=== PATIENT | female | born 1955 | race African-American/Black ===

== ENCOUNTER 2017-04-25 09:27 | Inpatient (IN) ==
[2017-04-25] MEDS ORDERED: ONDANSETRON 4 MG/2 ML VIAL IV STA (10:01)
[2017-04-25] MEDS ORDERED: LOPERAMIDE 2 MG CAPSULE PO STA (10:01)
[2017-04-25] MEDS ORDERED: METOCLOPRAMIDE 10 MG/2 ML VIAL IV STA (10:01)
[2017-04-25] MEDS ORDERED: SODIUM CHLORIDE 0.9% 1,000 ML IV STA (10:01)
[2017-04-25] MEDS ORDERED: DICYCLOMINE 20 MG/2 ML AMP IM ONE ×2 (10:01→10:26)
[2017-04-25] MEDS ORDERED: metroNIDAZOLE INJ 500 MG in PREMIX 1 EACH IV STA (10:01)
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
[2017-04-25 10:26] LABS: Basophils # 0.1 10*3/uL (0.0-0.2); Basophils % 0.7 % (0.0-0.8); Eosinophils # 0.1 10*3/uL (0.0-0.87); Eosinophils % 0.8 % (0.00-10.9); Hematocrit 28.1 VOL% (35.7-47.0); Hemoglobin 9.1 GM/DL (12.0-16.0); Immature Granulocytes % 32.3 %; Immature Granulocytes Absolute 3.61 #; Lymphocytes % 8.6 % (21.3-54.2); Mean Corpuscular HGB Conc 32.4 GM/DL (32-36); Mean Corpuscular Hemoglobin 31 PG (27-34); Mean Corpuscular Volume 94.6 FL (87-102); Mean Platelet Volume 8.9 FL (9.6-12.0); Monocytes # 0.1 10*3/uL (0.11-0.8); Neutrophils # 6.3 10*3/uL (1.4-7.4); Neutrophils % 56.6 % (38.7-73.9); Platelet Count 119 T/CUMM (130-400); Red Blood Count 2.97 MC/CUMM (3.8-5.5); Red Cell Distribution Width 15.3 % (9.3-17.3); White Blood Count 11.2 T/CUMM (4-12)
[2017-04-25] MEDS ORDERED: LOPERAMIDE 2 MG CAPSULE ONE (10:26)
[2017-04-25] MEDS ORDERED: ONDANSETRON 4 MG/2 ML VIAL ONE (10:26)
[2017-04-25] MEDS ORDERED: metroNIDAZOLE 500 MG/100 ML PREMIX IV ONE (10:26)
[2017-04-25] MEDS ORDERED: METOCLOPRAMIDE 10 MG/2 ML VIAL ONE (10:26)
[2017-04-25 11:04] LABS: Albumin 2.8 G/DL (3.4-5.0); Calcium 8.4 MG/DL (8.5-10.1); Potassium 3.9 MMOL/L (3.5-5.1); Total Protein 7.1 G/DL (6.4-8.3)
[2017-04-25 11:15] LABS: Lactic Acid 2.2 MMOL/L (0.4-2.0)
[2017-04-25 11:47] LABS: Apearance,Urine CLOUDY (Clear); Bacteria,Urine Few /HPF (Few); Bilirubin,Urine Negative (Negative); Blood, Urine Small mg/dL (Negative); Glucose,Urine (UA) Negative (Negative); Ketones,Urine Negative (Negative); Mucus,Urine Moderate /LPF (Occasional); Nitrite,Urine Negative (Negative); Protein,Urine 100 MG/DL; RBC,Urine 2 /HPF (0-4); Squamous Epithelial Cell,Urine Occasional /HPF (0-10); Urine Color Yellow (Yellow); Urine Specific Gravity 1.013 (1.001-1.035); Urine Urobilinogen < 2.0 EU/DL (0.2-1.0); WBC,Urine 9 /HPF (0-6)
--- NOTE | 2017-04-25 11:56 | XRay Report ---
XR abdomen 2V Indication: Abdominal pain Comparison: None available Findings: No free fluid or free air seen. A few prominent small bowel loops are present in the right side of the abdomen with air-fluid levels. Otherwise the bowel gas pattern appears within normal limits. No abnormal calcifications are present. No other abnormality is identified. Impression: Few prominent small bowel loops in the right central abdomen, could indicate ileus versus partial obstruction. PROCEDURE INTERPRETED AT [facility] DEPARTMENT OF RADIOLOGY Final Report Signed by: Dr. Brent Dooley
[2017-04-25 12:55] LABS: Macrocytosis 1+
[2017-04-25 12:56] LABS: Burr Cells Slight; Hypochromasia 1+
--- NOTE | 2017-04-25 15:03 | CT Report ---
CT abdomen pelvis Indication: Small bowel obstruction Comparison: 05 April 2017 Technique: Axial CT imaging of the abdomen and pelvis is performed with intravenous and oral contrast. Contrast dose is 100 cc of Omnipaque 350. Findings: Cardiac and lung bases are within normal limits CT abdomen: Moderate amount of abdominal ascites is present similar to previous. Liver has multiple hypodense lesions similar to previous CT. Gallbladder is distended with calculi. Pancreas and adrenal glands are normal in size and enhancement. No evidence of focal lesion is demonstrated in these solid organs. Kidneys are normal in size and enhancement. No evidence of hydronephrosis or nephrolithiasis is seen. Left lower abdominal and pelvic mass is present with similar appearance to previous study. Small bowel caliber is increased in the midabdomen without evidence of obstruction. The mass doesn't produce loop of small bowel in this area. Remaining bowel caliber is normal and no wall thickening or adjacent inflammatory change is seen. No evidence of free fluid or free air is present. CT pelvis: The pelvic bowel appears within normal limits. Bladder shows no evidence of abnormality. The uterus is enlarged with heterogeneous density present. Impression: Distended loops of nonobstructive small bowel bowel. The left lower abdominopelvic mass does approach portion of the small bowel in this area and may be contributing to vascular congestion in this area. This CT exam was performed using one or more the following dose reduction techniques: Automated exposure control, adjustment of the MA and/or KV according to patient size, or use of iterative reconstruction technique. PROCEDURE INTERPRETED AT [facility] DEPARTMENT OF RADIOLOGY Final Report Signed by: Dr. Brent Dooley
[2017-04-25] MEDS ORDERED: traMADol 50 MG TABLET PO PRN (17:42)
[2017-04-25] MEDS ORDERED: BENZTROPINE 2 MG/2 ML AMP IV PRN (17:42)
[2017-04-25] MEDS ORDERED: guaiFENesin 200 MG/10 ML UDCUP PO PRN (17:42)
[2017-04-25] MEDS ORDERED: ALPRAZolam 0.25 MG TABLET PO PRN (17:42)
[2017-04-25] MEDS ORDERED: LACTULOSE 20 GM/30 ML UDCUP PO PRN (17:42)
[2017-04-25] MEDS ORDERED: ACETAMINOPHEN 325 MG TABLET PO PRN (17:42)
[2017-04-25] MEDS ORDERED: MAGNESIUM HYDROXIDE SUSP 30 ML UDCUP PO PRN (17:42)
[2017-04-25] MEDS ORDERED: MYLANTA/LIDO VISC 2:1 300 ML BOTTLE SWISH/SPIT PRN (17:42)
[2017-04-25] MEDS ORDERED: MYLANTA/LIDO VISC 2:1 300 ML BOTTLE SWISH/SWAL PRN (17:42)
[2017-04-25] MEDS ORDERED: LOPERAMIDE 2 MG CAPSULE PO PRN (17:42)
[2017-04-25] MEDS ORDERED: diphenhydrAMINE CAP 25 MG CAPSULE PO PRN (17:42)
[2017-04-25] MEDS ORDERED: TEMAZEPAM 7.5 MG CAPSULE PO PRN (17:42)
[2017-04-25] MEDS ORDERED: ALUMINUM/MAGNES/SIMETH MAX STR 30 ML UDCUP PO PRN (17:42)
[2017-04-25] MEDS ORDERED: MAGNESIUM SULF INJ 3 GM in SODIUM CHLORIDE 0.9% 100 ML IV ONE (19:00)
[2017-04-25] MEDS: SULFAMETHOX/TRIMETHOPRIM 800-160 MG TABLET PO SCH (21:18)
[2017-04-25] MEDS: SODIUM CHLORIDE 0.45% 1,000 ML IV SCH (21:24)
[2017-04-25] MEDS ORDERED: INFLUENZA VIRUS VACCINE 0.5 ML SYRINGE IM ONE (23:37)
[2017-04-26] MEDS: LOPERAMIDE 2 MG CAPSULE PO PRN ×2 (02:22→09:55)
[2017-04-26 07:58] LABS: Magnesium 2.2 MG/DL (1.8-2.4); Uric Acid 6.6 MG/DL (2.6-6.0)
[2017-04-26] MEDS ORDERED: TUBERCULIN SKIN TEST 0.1 ML SYRINGE INTRADERM ONE (08:26)
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
[2017-04-26] MEDS: SULFAMETHOX/TRIMETHOPRIM 800-160 MG TABLET PO SCH ×2 (08:28→22:30)
[2017-04-26] MEDS: CHOLESTYRAMINE 4 GM PACK PO SCH ×2 (09:44→22:30)
[2017-04-26] MEDS: SODIUM CHLORIDE 0.45% 1,000 ML IV SCH ×2 (13:38→22:32)
[2017-04-26] MEDS: ZINC OXIDE PASTE 113 GM TUBE TOP SCH (22:30)
[2017-04-27] MEDS: SODIUM CHLORIDE 0.45% 1,000 ML IV SCH ×2 (02:53→17:46)
[2017-04-27] MEDS: LOPERAMIDE 2 MG CAPSULE PO PRN ×2 (03:26→14:16)
[2017-04-27] MEDS: ONDANSETRON 4 MG/2 ML VIAL IV PRN (03:27)
--- NOTE | 2017-04-27 08:22 | Oncology Progress Note ---
Assessment and Plan (1) Metastatic colon cancer in female Status: Acute Assessment and plan: We will give IV fluids today and anti-diarrhea medications. Otherwise continue with best supportive care. The family states they will take her back home at the time of discharge. Current Visit: Yes Oncology Subjective PN Interval history: Still with some degree of diarrhea. C. difficile is negative. Gram-negative rods in the urine are noted with oral Bactrim treatment currently prescribed. She has had nausea and vomiting 1 and will transition antibiotics to IV if this continues. She had some dilated loops of small intestine seen on admission CT scan. This morning she has bilateral bowel sounds which are present. Her abdomen is soft and nontender. She is pleasant and cooperative and appears in no distress. Her sister is at bedside. She is receiving IV fluids and we will encourage p.o. intake as tolerated. Her malignancy has certainly progressed based on CT scan from 04/05/2017 and alternative chemotherapy versus best supportive care will need to be decided upon Exam - Constitutional Vitals: Period Temp Pulse Resp BP Sys/Echeverria Pulse Ox Last 24 Hr 96.9 F-100.6 F 84-103 16-20 109-146/56-83 91-100 Results - Labs CBC & BMP: 04/25/17 10:01 04/25/17 09:56
[2017-04-27] MEDS: CHOLESTYRAMINE 4 GM PACK PO SCH ×2 (09:39→20:45)
[2017-04-27] MEDS: ZINC OXIDE PASTE 113 GM TUBE TOP SCH ×2 (09:39→20:49)
[2017-04-27] MEDS: SULFAMETHOX/TRIMETHOPRIM 800-160 MG TABLET PO SCH ×2 (09:39→20:46)
[2017-04-27] MEDS: MORPHINE 2 MG/1 ML SYRINGE IV PRN (17:04)
[2017-04-28] MEDS: SODIUM CHLORIDE 0.45% 1,000 ML IV SCH ×2 (07:01→13:24)
[2017-04-28 07:09] LABS: Albumin 2.1 G/DL (3.4-5.0); Bilirubin,Total 0.7 MG/DL (0.2-1.0); Calcium 7.5 MG/DL (8.5-10.1); Magnesium 1.8 MG/DL (1.8-2.4); Osmolality,Calculated 275.7 MOS/KG (273-304); Potassium 3.5 MMOL/L (3.5-5.1); Total Protein 5.5 G/DL (6.4-8.3)
[2017-04-28 07:59] LABS: Basophils % 0.8 % (0.0-0.8); Eosinophils % 2.4 % (0.00-10.9); Hematocrit 21.4 VOL% (35.7-47.0); Immature Granulocytes % 4.8 %; Immature Granulocytes Absolute 0.06 #; Lymphocytes # 0.6 10*3/uL (1.4-4.0); Lymphocytes % 51.6 % (21.3-54.2); Mean Corpuscular HGB Conc 33.2 GM/DL (32-36); Mean Corpuscular Hemoglobin 31 PG (27-34); Mean Corpuscular Volume 91.8 FL (87-102); Mean Platelet Volume 12.3 FL (9.6-12.0); Monocytes # 0.1 10*3/uL (0.11-0.8); Monocytes % 8.9 % (1.7-12.7); Neutrophils # 0.4 10*3/uL (1.4-7.4); Neutrophils % 31.5 % (38.7-73.9)
[2017-04-28 08:38] LABS: White Blood Count 1.2 T/CUMM (4-12)
[2017-04-28 08:39] LABS: Hemoglobin 7.1 GM/DL (12.0-16.0); Platelet Count 51 T/CUMM (130-400); Red Blood Count 2.33 MC/CUMM (3.8-5.5)
[2017-04-28] MEDS ORDERED: SODIUM CHLORIDE 0.9% 250 ML IV PRN (08:47)
[2017-04-28 08:51] LABS: Band Neutrophils 3 % (0-10); Eosinophils 1 % (0-10); Giant Platelets Few; Hypochromasia 1+; Lymphocytes 62 % (20-55); Ovalocytes Slight; Platelet Estimate Decreased; Segmented Neutrophils 21 % (50-85); Total Cells Counted 100
--- NOTE | 2017-04-28 08:51 | Oncology Progress Note ---
Assessment and Plan (1) Metastatic colon cancer in female Status: Acute Assessment and plan: We will give IV fluids today and anti-diarrhea medications. Otherwise continue with best supportive care. The family states they will take her back home at the time of discharge. Current Visit: Yes Oncology Subjective PN Interval history: Josiah Quinn is a very ill patient at this time with chemo related pancytopenia. I plan to transfuse 2 units of red blood cells today and place her on Neupogen. She also has febrile neutropenia with IV Cipro and IV Flagyl initiated today. We are treating an E. coli UTI though also think she has evidence of an ileus and oral antibiotics are now discontinued. We will change diet to full liquid. Her sister is at bedside. Bowel sounds are hypoactive. No vomiting but there is some suspicion of nausea as she is refusing p.o. intake. Continue with IV fluids with bowel management system now in place with brown liquid noted in the collection container. Urine output is positive though with some degree of concentration. Creatinine is appropriate at 1.6. She remains on IV fluids at 75 mL's an hour in addition to other IV medications. Her abdomen remained soft and no significant tenderness. There is no guarding or rebound. Exam - Constitutional Vitals: Period Temp Pulse Resp BP Sys/Echeverria Pulse Ox Last 24 Hr 97.9 F-101.1 F 101-111 18-20 111-147/55-78 97-100 Results - Labs CBC & BMP: 04/28/17 07:35 04/28/17 05:25
[2017-04-28 08:52] LABS: Atypical Lymphocytes Few; Microcytosis Slight
[2017-04-28] MEDS: FILGRASTIM-SNDZ 300 MCG/0.5 ML SYRINGE SUBCUT SCH (09:38)
[2017-04-28] MEDS: CHOLESTYRAMINE 4 GM PACK PO SCH ×3 (09:38→21:20)
[2017-04-28] MEDS: metroNIDAZOLE INJ 500 MG in PREMIX 1 EACH IV SCH ×2 (09:38→18:00)
[2017-04-28] MEDS: ZINC OXIDE PASTE 113 GM TUBE TOP SCH ×2 (09:39→21:19)
--- NOTE | 2017-04-28 10:10 | XRay Report ---
XR abdomen 1V Indication: Abdominal ileus Comparison: One April 2017 Findings: No free fluid or free air seen. Distended small bowel loops remain in the mid abdomen. The remaining bowel gas pattern appears within normal limits. No abnormal calcifications are present. No other abnormality is identified. Impression: Distended small bowel loops with similar appearance to previous study. PROCEDURE INTERPRETED AT [facility] DEPARTMENT OF RADIOLOGY Final Report Signed by: Dr. Brent Dooley
[2017-04-28] MEDS: CIPROFLOXACIN INJ 400 MG in PREMIX 1 EACH IV SCH ×2 (11:22→22:08)
[2017-04-28] MEDS: ONDANSETRON 4 MG/2 ML VIAL IV PRN (17:14)
[2017-04-29] MEDS: metroNIDAZOLE INJ 500 MG in PREMIX 1 EACH IV SCH ×3 (01:07→16:49)
[2017-04-29] MEDS: SODIUM CHLORIDE 0.45% 1,000 ML IV SCH ×3 (06:39→22:42)
[2017-04-29 07:17] LABS: Basophils % 0.7 % (0.0-0.8); Hematocrit 26.2 VOL% (35.7-47.0); Immature Granulocytes % 1.5 %; Immature Granulocytes Absolute 0.02 #; Lymphocytes # 0.7 10*3/uL (1.4-4.0); Lymphocytes % 51.1 % (21.3-54.2); Mean Corpuscular HGB Conc 33.6 GM/DL (32-36); Mean Corpuscular Hemoglobin 30 PG (27-34); Mean Corpuscular Volume 88.2 FL (87-102); Monocytes # 0.2 10*3/uL (0.11-0.8); Monocytes % 14.8 % (1.7-12.7); Neutrophils # 0.4 10*3/uL (1.4-7.4); Neutrophils % 28.9 % (38.7-73.9); White Blood Count 1.4 T/CUMM (4-12)
[2017-04-29 07:18] LABS: Red Blood Count 2.97 MC/CUMM (3.8-5.5)
[2017-04-29 07:19] LABS: Hemoglobin 8.8 GM/DL (12.0-16.0); Platelet Count 64 T/CUMM (130-400)
[2017-04-29 07:24] LABS: INR 1.5; PT Patient Result 16.1 SECS; Partial Thromboplastin Time 28.9 SECS (0-40)
[2017-04-29 07:46] LABS: Band Neutrophils 2 % (0-10); Burr Cells Slight; Eosinophils 3 % (0-10); Hypochromasia Slight; Lymphocytes 56 % (20-55); Microcytosis Slight; Ovalocytes Slight; Platelet Estimate Decreased; Segmented Neutrophils 23 % (50-85); Total Cells Counted 100
[2017-04-29 07:47] LABS: Atypical Lymphocytes Few
[2017-04-29 07:50] LABS: Albumin 2.2 G/DL (3.4-5.0); Bilirubin,Total 1.5 MG/DL (0.2-1.0); Calcium 7.7 MG/DL (8.5-10.1); Magnesium 1.8 MG/DL (1.8-2.4); Osmolality,Calculated 278.5 MOS/KG (273-304); Potassium 3.3 MMOL/L (3.5-5.1); Total Protein 5.4 G/DL (6.4-8.3)
[2017-04-29] MEDS ORDERED: SODIUM CHLORIDE 0.9% 1,000 ML IV ONE (08:29)
--- NOTE | 2017-04-29 08:39 | Oncology Progress Note ---
Assessment and Plan (1) Metastatic colon cancer in female Status: Acute Assessment and plan: We will give IV fluids today and anti-diarrhea medications. Otherwise continue with best supportive care. The family states they will take her back home at the time of discharge. Current Visit: Yes Oncology Subjective PN Interval history: The patient had emesis 2 yesterday. Bowel sounds remain hypoactive. Clinically she has at least a partial ileus or partial small bowel obstruction. There is actually still stool output. I have reviewed the CT report and the CT images and it appears that the left adnexal mass is impinging upon the small bowel. Plans for today include total bowel rest with n.p.o. status and TPN. She has made some improvements in her white blood cell count and platelet levels. Her hemoglobin is acceptable. She is currently afebrile. She is on IV antibiotics for an E. coli urinary tract infection. I will speak to her sister regarding how aggressive we are from this point regarding laparotomy in the setting of progressive metastatic disease. Exam - Constitutional Vitals: Period Temp Pulse Resp BP Sys/Echeverria Pulse Ox Last 24 Hr 97.9 F-99.6 F 106-114 18-20 112-159/58-80 96-99 Results - Labs CBC & BMP: 04/29/17 06:46 04/29/17 06:46
[2017-04-29] MEDS: CHOLESTYRAMINE 4 GM PACK PO SCH ×2 (09:03→22:42)
[2017-04-29] MEDS: FILGRASTIM-SNDZ 300 MCG/0.5 ML SYRINGE SUBCUT SCH (09:03)
[2017-04-29] MEDS: ZINC OXIDE PASTE 113 GM TUBE TOP SCH ×2 (09:04→22:42)
[2017-04-29] MEDS ORDERED: DEXTROSE 50% 25 GM/50 ML VIAL IV PRN (10:12)
[2017-04-29] MEDS ORDERED: GLUCAGON 1 MG VIAL IM PRN (10:12)
[2017-04-29 10:34] LABS: Prealbumin 5.1 MG/DL (20-40)
--- NOTE | 2017-04-29 10:47 | XRay Report ---
XR abdomen 1V Indication: Abdominal ileus Comparison: 28 April 2017 Findings: No free fluid or free air seen. Few prominent bowel loops present in the abdomen, slightly improved from previous study. Remaining bowel gas pattern appears within normal limits. No abnormal calcifications are present. No other abnormality is identified. Impression: Mild improvement of abdominal ileus. PROCEDURE INTERPRETED AT [facility] DEPARTMENT OF RADIOLOGY Final Report Signed by: Dr. Brent Dooley
[2017-04-29] MEDS: INSULIN REGULAR 100 UNIT/ML SUBCUT SCH ×2 (12:20→18:56)
[2017-04-29] MEDS: CIPROFLOXACIN INJ 400 MG in PREMIX 1 EACH IV SCH ×2 (12:23→22:41)
[2017-04-29] MEDS: FAT EMULSION 20% 250 ML IV SCH (16:49)
[2017-04-29] MEDS ORDERED: MULTIVITAMIN INJ 10 ML in AMINO ACIDS/DEXT/LYTES 5-15% 2,000 ML IV SCH (17:00)
[2017-04-29] MEDS: MORPHINE 2 MG/1 ML SYRINGE IV PRN (22:45)
[2017-04-30] MEDS: metroNIDAZOLE INJ 500 MG in PREMIX 1 EACH IV SCH ×3 (01:02→21:07)
[2017-04-30] MEDS: INSULIN REGULAR 100 UNIT/ML SUBCUT SCH ×4 (01:10→17:35)
[2017-04-30 04:46] LABS: Eosinophils % 2.4 % (0.00-10.9); Hematocrit 22.6 VOL% (35.7-47.0); Hemoglobin 7.5 GM/DL (12.0-16.0); Lymphocytes # 0.9 10*3/uL (1.4-4.0); Lymphocytes % 52.4 % (21.3-54.2); Mean Corpuscular HGB Conc 33.2 GM/DL (32-36); Mean Corpuscular Hemoglobin 30 PG (27-34); Mean Platelet Volume 10.7 FL (9.6-12.0); Monocytes # 0.3 10*3/uL (0.11-0.8); Monocytes % 16.5 % (1.7-12.7); Neutrophils # 0.5 10*3/uL (1.4-7.4); Neutrophils % 28.7 % (38.7-73.9); Red Blood Count 2.54 MC/CUMM (3.8-5.5); Red Cell Distribution Width 15.7 % (9.3-17.3); White Blood Count 1.7 T/CUMM (4-12)
[2017-04-30 04:48] LABS: Platelet Count 87 T/CUMM (130-400)
[2017-04-30 05:18] LABS: Calcium 7.6 MG/DL (8.5-10.1); Osmolality,Calculated 286.3 MOS/KG (273-304)
[2017-04-30 05:19] LABS: Potassium 3.1 MMOL/L (3.5-5.1)
[2017-04-30 05:23] LABS: Albumin 1.8 G/DL (3.4-5.0); Bilirubin,Total 0.7 MG/DL (0.2-1.0); Calcium 7.7 MG/DL (8.5-10.1); Magnesium 1.7 MG/DL (1.8-2.4); Osmolality,Calculated 286.3 MOS/KG (273-304); Potassium 3.2 MMOL/L (3.5-5.1); Total Protein 4.9 G/DL (6.4-8.3)
[2017-04-30 05:34] LABS: Atypical Lymphocytes Few; Band Neutrophils 1 % (0-10); Burr Cells Slight; Eosinophils 5 % (0-10); Giant Platelets Few; Hypochromasia Slight; Lymphocytes 52 % (20-55); Microcytosis Slight; Ovalocytes Slight; Platelet Estimate Decreased; Segmented Neutrophils 24 % (50-85); Total Cells Counted 100
[2017-04-30] MEDS ORDERED: SODIUM CHLORIDE 0.9% 250 ML IV PRN (09:20)
--- NOTE | 2017-04-30 09:25 | Oncology Progress Note ---
Assessment and Plan - Time spent with patient Time spent with patient: Greater than 30 minutes (1) Bowel obstruction Status: Acute Current Visit: Yes (2) Liver metastasis Status: Acute Current Visit: Yes (3) Pancytopenia due to chemotherapy Status: Acute Current Visit: Yes (4) Metastatic colon cancer in female Status: Acute Current Visit: Yes Oncology Subjective PN Interval history: Ms. Quinn 61-year-old black female with metastatic colon cancer currently on second line chemotherapy. She is usually followed by Dr. Flores. She is admitted now with abdominal distention and dilated small bowel on CT scan. She has a known large left pelvic mass. There is concern that this is causing bowel obstruction. We will ask surgery to see her in case this becomes a surgical issue. They can of course see her in the morning since this is not an urgent issue. At this point with her prognosis and her overall physical function I do not think we need to be very aggressive. I had a lengthy discussion today with the patient and her sister about her situation. I told him to be thinking about her CODE STATUS given her underlying prognosis. The patient is not mentally capable of understanding such conversations and the sister was not ready to make any decision at this time. She is not vomiting so I do not see a need for an NG tube at this time. She is on TPN that was initiated yesterday. She is pancytopenic from her recent chemotherapy. She is on Neupogen. I will give her 2 units of blood today. Exam - Constitutional Vitals: Period Temp Pulse Resp BP Sys/Echeverria Pulse Ox Last 24 Hr 98.2 F-99.8 F 91-111 18-20 112-123/58-70 96-100 General appearance: normal weight, no acute distress - Head Head Exam: Present: normocephalic, atraumatic - Eye Eye Exam: Present: EOMI Pupils: Present: PERRL - ENT ENT exam: Present: normal exam, normal oropharynx - Neck Neck exam: Absent: lymphadenopathy, thyromegaly - Respiratory Respiratory exam: Present: CTAB. Absent: wheezes - GI/Abdominal GI/Abdominal exam: Present: distended, hypoactive bowel sounds, soft. Absent: ascites, firm, mass - Neurological Exam Neurological exam: Present: alert, oriented X3 - Skin Skin exam: Present: warm, dry Results - Labs CBC & BMP: 04/30/17 03:22 04/30/17 03:22 Lab Results: I have reviewed the past 24 hour labs - Diagnostic Findings Procedure: Abdominal x-ray: image reviewed by me
[2017-04-30] MEDS: SODIUM CHLORIDE 0.45% 1,000 ML IV SCH (09:32)
[2017-04-30] MEDS: CHOLESTYRAMINE 4 GM PACK PO SCH ×2 (09:33→20:58)
[2017-04-30] MEDS: ZINC OXIDE PASTE 113 GM TUBE TOP SCH ×2 (09:33→21:09)
[2017-04-30] MEDS: FILGRASTIM-SNDZ 300 MCG/0.5 ML SYRINGE SUBCUT SCH (09:33)
--- NOTE | 2017-04-30 09:55 | XRay Report ---
History: Ileus Date: 04/30/2017 Study: KUB Comparison exam: 04/29/2017 There are some occasional air filled loops of large and small bowel over the abdomen compatible with ileus, the same or slightly improved. There is pooling of air filled bowel over the central abdomen compatible with underlying ascites. Osseous structures are unchanged. Impression: Stable or slightly improved ileus. Suspected underlying ascites as before PROCEDURE INTERPRETED AT [facility] DEPARTMENT OF RADIOLOGY Final Report Signed by: Dr. Angela Robledo
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
[2017-04-30] MEDS: CIPROFLOXACIN INJ 400 MG in PREMIX 1 EACH IV SCH (12:52)
[2017-04-30] MEDS: FAT EMULSION 20% 250 ML IV SCH (14:22)
[2017-04-30] MEDS: TRACE ELEMENTS (5) 1 ML, MULTIVITAMIN INJ 10 ML, POTASSIUM CHLORIDE INJ 40 MEQ in AMINO... IV SCH (16:52)
[2017-04-30] MEDS ORDERED: MULTIVITAMIN INJ 10 ML in AMINO ACIDS/DEXT/LYTES 5-15% 2,000 ML IV SCH (17:00)
[2017-04-30] MEDS ORDERED: DEXTROSE 10% 1,000 ML IV PRN (17:00)
[2017-05-01] MEDS: INSULIN REGULAR 100 UNIT/ML SUBCUT SCH ×4 (00:34→18:46)
[2017-05-01] MEDS: CIPROFLOXACIN INJ 400 MG in PREMIX 1 EACH IV SCH ×2 (01:21→14:10)
[2017-05-01] MEDS: SODIUM CHLORIDE 0.45% 1,000 ML IV SCH ×3 (01:30→23:01)
[2017-05-01] MEDS: metroNIDAZOLE INJ 500 MG in PREMIX 1 EACH IV SCH ×3 (03:28→17:10)
[2017-05-01 04:31] LABS: Basophils % 0.3 % (0.0-0.8); Eosinophils # 0.1 10*3/uL (0.0-0.87); Eosinophils % 2.1 % (0.00-10.9); Hematocrit 29.2 VOL% (35.7-47.0); Hemoglobin 9.8 GM/DL (12.0-16.0); Immature Granulocytes % 0.7 %; Immature Granulocytes Absolute 0.02 #; Lymphocytes # 0.8 10*3/uL (1.4-4.0); Lymphocytes % 27.9 % (21.3-54.2); Mean Corpuscular HGB Conc 33.6 GM/DL (32-36); Mean Corpuscular Hemoglobin 30 PG (27-34); Mean Corpuscular Volume 88.5 FL (87-102); Mean Platelet Volume 10.6 FL (9.6-12.0); Monocytes # 0.5 10*3/uL (0.11-0.8); Monocytes % 17.9 % (1.7-12.7); Neutrophils # 1.5 10*3/uL (1.4-7.4); Neutrophils % 51.1 % (38.7-73.9); Platelet Count 96 T/CUMM (130-400); White Blood Count 2.9 T/CUMM (4-12)
[2017-05-01 05:03] LABS: Albumin 1.9 G/DL (3.4-5.0); Magnesium 1.8 MG/DL (1.8-2.4); Osmolality,Calculated 291.1 MOS/KG (273-304); Potassium 3.5 MMOL/L (3.5-5.1); Total Protein 5.3 G/DL (6.4-8.3)
[2017-05-01 05:57] LABS: Anisocytosis Slight; Band Neutrophils 12 % (0-10); Eosinophils 2 % (0-10); Lymphocytes 26 % (20-55); Metamyelocytes 3 %; Microcytosis Slight; Myelocytes 2 %; Platelet Estimate Decreased; Segmented Neutrophils 39 % (50-85); Total Cells Counted 100
[2017-05-01] MEDS: CHOLESTYRAMINE 4 GM PACK PO SCH ×2 (08:32→21:30)
[2017-05-01] MEDS: FILGRASTIM-SNDZ 300 MCG/0.5 ML SYRINGE SUBCUT SCH (09:11)
[2017-05-01] MEDS: ZINC OXIDE PASTE 113 GM TUBE TOP SCH ×2 (09:12→21:32)
[2017-05-01] MEDS ORDERED: SODIUM CHLORIDE 0.9% 1,000 ML IV ONE (10:55)
--- NOTE | 2017-05-01 10:57 | Oncology Progress Note ---
Assessment and Plan (1) Bowel obstruction Status: Acute Current Visit: Yes (2) Liver metastasis Status: Acute Current Visit: Yes (3) Pancytopenia due to chemotherapy Status: Acute Current Visit: Yes (4) Metastatic colon cancer in female Status: Acute Current Visit: Yes Oncology Subjective PN Interval history: Ms. Quinn doing well today. Her abdomen still distended with very few bowel sounds. She is only having some liquid stool. Surgery is seen her for us we appreciate their assistance. We are managing her conservatively. I will give her a liter bolus today as she appears somewhat dehydrated. I told her it is likely okay for her start sipping on water throughout the day. Her prognosis remains poor. We are hoping to manage her with conservative measures only. Exam - Constitutional Vitals: Period Temp Pulse Resp BP Sys/Echeverria Pulse Ox Last 24 Hr 97.0 F-99.0 F 90-99 18-97 93-137/54-76 94-100 General appearance: normal weight, no acute distress - Head Head Exam: Present: normocephalic, atraumatic - Eye Eye Exam: Present: EOMI Pupils: Present: PERRL - ENT ENT exam: Present: normal exam, normal oropharynx - Neck Neck exam: Absent: lymphadenopathy - Respiratory Respiratory exam: Present: CTAB. Absent: chest wall tenderness, decreased breath sounds - Cardiovascular Cardiovascular exam: Present: RRR - GI/Abdominal GI/Abdominal exam: Present: distended, hypoactive bowel sounds, soft. Absent: firm, mass - Neurological Exam Neurological exam: Present: alert, oriented X3 - Psychiatric Psychiatric exam: Present: normal affect, normal mood Results - Labs CBC & BMP: 05/01/17 03:45 05/01/17 03:46 Lab Results: I have reviewed the past 24 hour labs
--- NOTE | 2017-05-01 11:02 | Event Note ---
No changes compared to yesterday. The abdomen is unchanged nontender but tympanic and distended. There is been no bowel function since yesterday but also no nausea or vomiting. We will continue to monitor for now.
[2017-05-01] MEDS: FAT EMULSION 20% 250 ML IV SCH (14:50)
[2017-05-01] MEDS ORDERED: FUROSEMIDE 20 MG/2 ML VIAL IV ONE (18:19)
[2017-05-01] MEDS: TRACE ELEMENTS (5) 1 ML, MULTIVITAMIN INJ 10 ML, POTASSIUM CHLORIDE INJ 40 MEQ in AMINO... IV SCH (18:25)
[2017-05-02] MEDS: INSULIN REGULAR 100 UNIT/ML SUBCUT SCH ×4 (00:57→18:01)
[2017-05-02] MEDS: CIPROFLOXACIN INJ 400 MG in PREMIX 1 EACH IV SCH ×2 (00:58→13:14)
[2017-05-02] MEDS: metroNIDAZOLE INJ 500 MG in PREMIX 1 EACH IV SCH (02:33)
[2017-05-02 05:26] LABS: Basophils # 0.1 10*3/uL (0.0-0.2); Basophils % 0.6 % (0.0-0.8); Eosinophils # 0.1 10*3/uL (0.0-0.87); Eosinophils % 0.8 % (0.00-10.9); Hematocrit 28.6 VOL% (35.7-47.0); Hemoglobin 9.8 GM/DL (12.0-16.0); Immature Granulocytes % 13.9 %; Immature Granulocytes Absolute 1.81 #; Lymphocytes # 1.5 10*3/uL (1.4-4.0); Lymphocytes % 11.1 % (21.3-54.2); Mean Corpuscular HGB Conc 34.3 GM/DL (32-36); Mean Corpuscular Hemoglobin 30 PG (27-34); Mean Corpuscular Volume 87.7 FL (87-102); Monocytes # 1.9 10*3/uL (0.11-0.8); Monocytes % 14.5 % (1.7-12.7); NRBC # 0.04 10*3/uL; Neutrophils # 7.7 10*3/uL (1.4-7.4); Neutrophils % 59.1 % (38.7-73.9); Platelet Count 110 T/CUMM (130-400); Red Blood Count 3.26 MC/CUMM (3.8-5.5); Red Cell Distribution Width 15.7 % (9.3-17.3)
[2017-05-02 05:56] LABS: Albumin 2.1 G/DL (3.4-5.0); Bilirubin,Total 0.9 MG/DL (0.2-1.0); Magnesium 1.5 MG/DL (1.8-2.4); Osmolality,Calculated 289.3 MOS/KG (273-304); Potassium 3.5 MMOL/L (3.5-5.1); Total Protein 5.4 G/DL (6.4-8.3)
[2017-05-02 06:23] LABS: Band Neutrophils 3 % (0-10); Eosinophils 1 % (0-10); Lymphocytes 12 % (20-55); Metamyelocytes 3 %; Myelocytes 1 %; Segmented Neutrophils 66 % (50-85); Total Cells Counted 100
[2017-05-02 06:24] LABS: Hypochromasia 1+
[2017-05-02 06:25] LABS: Burr Cells Slight; Microcytosis Slight
[2017-05-02 06:26] LABS: Platelet Estimate Decreased
--- NOTE | 2017-05-02 08:53 | Oncology Progress Note ---
Assessment and Plan - Time spent with patient Time spent with patient: Greater than 30 minutes (1) Bowel obstruction Status: Acute Current Visit: Yes (2) Liver metastasis Status: Acute Current Visit: Yes (3) Pancytopenia due to chemotherapy Status: Acute Current Visit: Yes (4) Metastatic colon cancer in female Status: Acute Current Visit: Yes Oncology Subjective PN Interval history: Ms. Quinn seems to be doing well today. Her neutrophil count is now greater than 7. Will discontinue Neupogen. We will also discontinue her Flagyl since her C. difficile toxin was negative. Given that her abdomen is distended with decreased bowel sounds I will hold Questran as well. She is still having some liquid stool so if this worsens we can consider adding back the Questran if needed. I will leave her on IV Cipro for now given her recent urine culture showing E. coli. Her overall prognosis remains very poor. I am unsure how well her family understands her overall cancer situation. Exam - Constitutional Vitals: Period Temp Pulse Resp BP Sys/Echeverria Pulse Ox Last 24 Hr 98.1 F-99.7 F 96-115 18-26 125-162/59-82 96-98 General appearance: normal weight, no acute distress - Head Head Exam: Present: normocephalic, atraumatic - Eye Eye Exam: Present: EOMI. Absent: scleral icterus Pupils: Present: PERRL - Respiratory Respiratory exam: Present: CTAB. Absent: wheezes - Cardiovascular Cardiovascular exam: Present: RRR. Absent: systolic murmur - GI/Abdominal GI/Abdominal exam: Present: soft. Absent: ascites, distended, mass - Neurological Exam Neurological exam: Present: alert, oriented X3, CN II-XII intact - Psychiatric Psychiatric exam: Present: normal affect, normal mood - Skin Skin exam: Present: warm, dry Results - Labs CBC & BMP: 05/02/17 04:41 05/02/17 04:41 Lab Results: I have reviewed the past 24 hour labs
--- NOTE | 2017-05-02 09:47 | XRay Report ---
EXAM: XR abdomen 2V CLINICAL INDICATION: Abdominal Pain COMPARISON: None Findings: No gastric distention. A few prominent air-filled loops of large and small bowel without dilatation or significant air-fluid levels. Visceral shadows are normal. No abnormal focal soft tissue masses or calcific densities identified in the abdomen or pelvis. IMPRESSION: No significant change in the bowel gas pattern, likely representing adynamic process PROCEDURE INTERPRETED AT [facility] DEPARTMENT OF RADIOLOGY Final Report Signed by: Narendra Vargas MD
[2017-05-02] MEDS: ZINC OXIDE PASTE 113 GM TUBE TOP SCH ×2 (11:34→21:36)
--- NOTE | 2017-05-02 12:45 | Event Note ---
No changes overnight. No bowel movements yet. Patient's abdomen exam is the same. She has no pain. She is still distended. She is being placed on a liquid diet today and we will see how she tolerates this. He does not have a significantly distended gastric bubble so hopefully some intake orally will stimulate her bowels.
[2017-05-02] MEDS: FAT EMULSION 20% 250 ML IV SCH (14:11)
[2017-05-02] MEDS: SODIUM CHLORIDE 0.45% 1,000 ML IV SCH (14:59)
[2017-05-02] MEDS: TRACE ELEMENTS (5) 1 ML, MULTIVITAMIN INJ 10 ML, POTASSIUM CHLORIDE INJ 40 MEQ in AMINO... IV SCH (17:43)
[2017-05-03] MEDS: INSULIN REGULAR 100 UNIT/ML SUBCUT SCH ×4 (00:17→18:34)
[2017-05-03] MEDS: CIPROFLOXACIN INJ 400 MG in PREMIX 1 EACH IV SCH ×2 (00:59→13:02)
[2017-05-03] MEDS: SODIUM CHLORIDE 0.45% 1,000 ML IV SCH ×2 (05:31→07:42)
[2017-05-03 06:16] LABS: Basophils # 0.1 10*3/uL (0.0-0.2); Basophils % 0.5 % (0.0-0.8); Eosinophils # 0.3 10*3/uL (0.0-0.87); Hematocrit 28.7 VOL% (35.7-47.0); Hemoglobin 9.9 GM/DL (12.0-16.0); Immature Granulocytes % 13.2 %; Immature Granulocytes Absolute 3.72 #; Lymphocytes # 3.1 10*3/uL (1.4-4.0); Mean Corpuscular HGB Conc 34.5 GM/DL (32-36); Mean Corpuscular Hemoglobin 30 PG (27-34); Mean Platelet Volume 11.4 FL (9.6-12.0); Monocytes # 4.7 10*3/uL (0.11-0.8); Monocytes % 16.6 % (1.7-12.7); NRBC # 0.05 10*3/uL; Neutrophils # 16.3 10*3/uL (1.4-7.4); Neutrophils % 57.7 % (38.7-73.9); Platelet Count 163 T/CUMM (130-400); Red Cell Distribution Width 16.1 % (9.3-17.3); White Blood Count 28.2 T/CUMM (4-12)
[2017-05-03 06:47] LABS: Calcium 8.1 MG/DL (8.5-10.1); Magnesium 1.4 MG/DL (1.8-2.4); Osmolality,Calculated 284.3 MOS/KG (273-304); Phosphorous 2.5 MG/DL (2.5-4.9); Potassium 3.3 MMOL/L (3.5-5.1)
[2017-05-03 06:50] LABS: Albumin 2.2 G/DL (3.4-5.0); Bilirubin,Total 1.4 MG/DL (0.2-1.0); Calcium 8.1 MG/DL (8.5-10.1); Osmolality,Calculated 284.3 MOS/KG (273-304); Potassium 3.3 MMOL/L (3.5-5.1); Total Protein 5.4 G/DL (6.4-8.3)
[2017-05-03 07:03] LABS: Band Neutrophils 6 % (0-10); Eosinophils 2 % (0-10); Lymphocytes 4 % (20-55); Nucleated Red Blood Cells 2 (0-5); Segmented Neutrophils 78 % (50-85); Total Cells Counted 100
[2017-05-03 07:04] LABS: Burr Cells Slight; Giant Platelets Few; Hypochromasia Slight; Microcytosis Slight; Platelet Estimate Normal
[2017-05-03] MEDS ORDERED: MAGNESIUM SULF RIDER 2 GM in PREMIX 1 EACH IV ONE (08:06)
--- NOTE | 2017-05-03 08:08 | Oncology Progress Note ---
Assessment and Plan (1) Bowel obstruction Status: Acute Current Visit: Yes (2) Liver metastasis Status: Acute Current Visit: Yes (3) Pancytopenia due to chemotherapy Status: Acute Current Visit: Yes (4) Metastatic colon cancer in female Status: Acute Current Visit: Yes Oncology Subjective PN Interval history: Ms. Quinn is continuing to improve each day. Her diarrhea has improved. She tolerated clear liquid diet with no problems yesterday. We will advance this to full liquid diet today and cut her TPN rate in half. I will also decrease the rate of her IV fluids. Her abdomen is still distended but there are some bowel sounds. Her white count has fully recovered from her recent neutropenia. Exam - Constitutional Vitals: Period Temp Pulse Resp BP Sys/Echeverria Pulse Ox Last 24 Hr 97.8 F-99.3 F 104-114 20-28 123-160/64-83 95-97 General appearance: normal weight, no acute distress - Head Head Exam: Present: normocephalic, atraumatic - Eye Eye Exam: Present: EOMI Pupils: Present: PERRL - ENT ENT exam: Present: normal exam, normal oropharynx - Neck Neck exam: Absent: lymphadenopathy, thyromegaly - Respiratory Respiratory exam: Present: CTAB. Absent: wheezes - Cardiovascular Cardiovascular exam: Present: RRR. Absent: JVD, systolic murmur - GI/Abdominal GI/Abdominal exam: Present: distended, hypoactive bowel sounds. Absent: ascites , guarding - Neurological Exam Neurological exam: Present: alert, oriented X3 - Skin Skin exam: Present: warm, dry Results - Labs CBC & BMP: 05/03/17 05:49 05/03/17 05:49 Lab Results: I have reviewed the past 24 hour labs
[2017-05-03] MEDS: ZINC OXIDE PASTE 113 GM TUBE TOP SCH ×2 (08:41→20:19)
--- NOTE | 2017-05-03 08:42 | Event Note ---
The patient had no events overnight. She is tolerating a liquid diet with no nausea or vomiting. She is having bowel movements and feels well overall. She denies any abdominal pain. On exam, her abdomen is completely benign and she does have bowel sounds present. I do not recommend any surgical intervention at this time.
[2017-05-03] MEDS: TRACE ELEMENTS (5) 1 ML, MULTIVITAMIN INJ 10 ML, POTASSIUM CHLORIDE INJ 40 MEQ in AMINO... IV SCH (17:19)
[2017-05-03] MEDS: FAT EMULSION 20% 250 ML IV SCH (17:20)
[2017-05-03] MEDS: MORPHINE 2 MG/1 ML SYRINGE IV PRN (21:41)
[2017-05-04] MEDS: INSULIN REGULAR 100 UNIT/ML SUBCUT SCH ×4 (01:17→19:43)
[2017-05-04] MEDS: CIPROFLOXACIN INJ 400 MG in PREMIX 1 EACH IV SCH ×2 (01:46→18:00)
[2017-05-04 06:58] LABS: Basophils # 0.1 10*3/uL (0.0-0.2); Basophils % 0.4 % (0.0-0.8); Eosinophils # 0.3 10*3/uL (0.0-0.87); Eosinophils % 1.2 % (0.00-10.9); Hematocrit 27.8 VOL% (35.7-47.0); Hemoglobin 9.3 GM/DL (12.0-16.0); Immature Granulocytes % 8.6 %; Immature Granulocytes Absolute 2.34 #; Lymphocytes # 2.7 10*3/uL (1.4-4.0); Lymphocytes % 10.1 % (21.3-54.2); Mean Corpuscular HGB Conc 33.5 GM/DL (32-36); Mean Corpuscular Hemoglobin 30 PG (27-34); Mean Corpuscular Volume 88.8 FL (87-102); Mean Platelet Volume 10.6 FL (9.6-12.0); Monocytes # 3.9 10*3/uL (0.11-0.8); Monocytes % 14.2 % (1.7-12.7); NRBC # 0.03 10*3/uL; Neutrophils # 17.8 10*3/uL (1.4-7.4); Neutrophils % 65.5 % (38.7-73.9); Platelet Count 157 T/CUMM (130-400); Red Blood Count 3.13 MC/CUMM (3.8-5.5); Red Cell Distribution Width 16.7 % (9.3-17.3); White Blood Count 27.2 T/CUMM (4-12)
[2017-05-04 07:30] LABS: Calcium 7.5 MG/DL (8.5-10.1); Osmolality,Calculated 286.3 MOS/KG (273-304); Potassium 3.4 MMOL/L (3.5-5.1)
[2017-05-04 07:39] LABS: Band Neutrophils 38 % (0-10); Eosinophils 1 % (0-10); Lymphocytes 12 % (20-55); Metamyelocytes 1 %; Segmented Neutrophils 40 % (50-85); Total Cells Counted 100
[2017-05-04 07:40] LABS: Anisocytosis 1+; Poikilocytosis 2+
--- NOTE | 2017-05-04 08:11 | Oncology Progress Note ---
Assessment and Plan (1) Metastatic colon cancer in female Status: Acute Assessment and plan: We will give IV fluids today and anti-diarrhea medications. Otherwise continue with best supportive care. The family states they will take her back home at the time of discharge. Current Visit: Yes Oncology Subjective PN Interval history: Patient is improved compared to several days earlier. She has fair tolerance of diet at this time. We are weaning TPN and IV fluids. Will consult physical therapy and occupational therapy and consider for swing bed placement. The family has declined previous offers of fdc placement. Her abdomen remains obese but nontender. Bowel sounds are present but somewhat hypoactive. There has been no recent nausea or vomiting reported. She is still having some watery bowel movements sporadically. White blood count is noted felt secondary to granulocyte colony-stimulating factor. Platelets have improved and hemoglobin appears stable. Should be able to discharge within a few days time pending continued acceptable p.o. intake Exam - Constitutional Vitals: Period Temp Pulse Resp BP Sys/Echeverria Pulse Ox Last 24 Hr 96.9 F-98.6 F 100-106 18-22 114-136/59-77 96-99 Results - Labs CBC & BMP: 05/04/17 05:00 05/04/17 04:59
[2017-05-04] MEDS: ZINC OXIDE PASTE 113 GM TUBE TOP SCH ×2 (08:54→20:00)
--- NOTE | 2017-05-04 09:28 | Event Note ---
No changes. Patient continues to have bowel function. Advance diet as tolerated. No surgical intervention planned at this time. Please call back with any further questions per
[2017-05-04] MEDS: SODIUM CHLORIDE 0.45% 1,000 ML IV SCH ×3 (12:54→12:56)
[2017-05-04] MEDS: FAT EMULSION 20% 250 ML IV SCH (17:00)
[2017-05-04] MEDS: TRACE ELEMENTS (5) 1 ML, MULTIVITAMIN INJ 10 ML, POTASSIUM CHLORIDE INJ 40 MEQ in AMINO... IV SCH (18:46)
[2017-05-05] MEDS: INSULIN REGULAR 100 UNIT/ML SUBCUT SCH ×4 (00:52→18:18)
[2017-05-05] MEDS: CIPROFLOXACIN INJ 400 MG in PREMIX 1 EACH IV SCH ×2 (01:21→14:20)
[2017-05-05] MEDS: SODIUM CHLORIDE 0.45% 1,000 ML IV SCH (06:44)
[2017-05-05] MEDS ORDERED: MAGNESIUM SULF INJ 3 GM in SODIUM CHLORIDE 0.9% 100 ML IV ONE (08:35)
--- NOTE | 2017-05-05 08:37 | Oncology Progress Note ---
Assessment and Plan (1) Metastatic colon cancer in female Status: Acute Assessment and plan: We will give IV fluids today and anti-diarrhea medications. Otherwise continue with best supportive care. The family states they will take her back home at the time of discharge. Current Visit: Yes Oncology Subjective PN Interval history: Tolerating full liquid diet. Plans to discontinue TPN and IV fluids today. Her sister seems to be okay with swing bed placement with initial assessment undertaken yesterday. She has improved bowel sounds this morning with no tenderness guarding or rebound. Her mood and affect are pleasant and cooperative. Because of chronic urinary incontinence and perineal irritation, we will continue [place] catheter for the short-term Exam - Constitutional Vitals: Period Temp Pulse Resp BP Sys/Echeverria Pulse Ox Last 24 Hr 97.8 F-99.0 F 101-107 18-20 121-175/67-100 97-100 Results - Labs CBC & BMP: 05/04/17 05:00 05/04/17 04:59
[2017-05-05] MEDS: ZINC OXIDE PASTE 113 GM TUBE TOP SCH ×2 (10:53→22:27)
[2017-05-05] MEDS: FAT EMULSION 20% 250 ML IV SCH (14:35)
[2017-05-06] MEDS: INSULIN REGULAR 100 UNIT/ML SUBCUT SCH ×2 (01:45→05:57)
[2017-05-06] MEDS: CIPROFLOXACIN INJ 400 MG in PREMIX 1 EACH IV SCH (01:53)
[2017-05-06 05:16] LABS: Basophils # 0.1 10*3/uL (0.0-0.2); Basophils % 0.3 % (0.0-0.8); Eosinophils # 0.4 10*3/uL (0.0-0.87); Eosinophils % 1.9 % (0.00-10.9); Hemoglobin 9.2 GM/DL (12.0-16.0); Immature Granulocytes % 4.4 %; Immature Granulocytes Absolute 0.95 #; Lymphocytes % 9.3 % (21.3-54.2); Mean Corpuscular HGB Conc 32.9 GM/DL (32-36); Mean Corpuscular Hemoglobin 30 PG (27-34); Mean Corpuscular Volume 90.6 FL (87-102); Mean Platelet Volume 9.9 FL (9.6-12.0); Monocytes # 2.7 10*3/uL (0.11-0.8); Monocytes % 12.6 % (1.7-12.7); NRBC # 0.02 10*3/uL; Neutrophils # 15.4 10*3/uL (1.4-7.4); Neutrophils % 71.5 % (38.7-73.9); Platelet Count 159 T/CUMM (130-400); Red Blood Count 3.09 MC/CUMM (3.8-5.5); Red Cell Distribution Width 17.4 % (9.3-17.3); White Blood Count 21.6 T/CUMM (4-12)
[2017-05-06 05:38] LABS: Band Neutrophils 2 % (0-10); Eosinophils 1 % (0-10); Hypochromasia 1+; Lymphocytes 12 % (20-55); Metamyelocytes 2 %; Nucleated Red Blood Cells 1 (0-5); Segmented Neutrophils 72 % (50-85); Total Cells Counted 100
[2017-05-06 05:39] LABS: Microcytosis 1+; Platelet Estimate Adequate
[2017-05-06 05:56] LABS: Calcium 7.7 MG/DL (8.5-10.1); Magnesium 1.7 MG/DL (1.8-2.4); Potassium 3.6 MMOL/L (3.5-5.1)
[2017-05-06 06:06] LABS: Albumin 2.1 G/DL (3.4-5.0); Bilirubin,Total 0.7 MG/DL (0.2-1.0); Calcium 7.7 MG/DL (8.5-10.1); Osmolality,Calculated 283.1 MOS/KG (273-304); Potassium 3.6 MMOL/L (3.5-5.1); Total Protein 5.5 G/DL (6.4-8.3)
[2017-05-06 08:37] VITALS: BP 140/81
--- NOTE | 2017-05-06 08:49 | Discharge Summary ---
Hospital Course - Hospital Course Hospital Course: Patient with metastatic colon cancer admitted with nausea vomiting diarrhea following chemotherapy the patient had thrombocytopenia and neutropenia. She received multiple days of Neupogen with white blood cell count recovery. The patient's platelets have also normalized. She was negative for C. difficile. She does have an E. coli urinary tract infection which is been treated with IV antibiotics. She also developed symptoms of an ileus with large left lower quadrant mass likely contributing to partial small bowel obstruction. She was treated conservatively with bowel rest n.p.o. and received several days of TPN. She was seen in consultation by general surgery. She has regained bowel function with normoactive bowel sounds today and a 3 day tolerance of full liquid diet. She has had 1-2 bowel movements overnight which were formed in consistency. We have discussed her case with her sister who is her primary caregiver. We have discussed prison and swing bed. The family declines prison and she was turned down by rehab due to her history of traumatic brain injury. She is typically non-ambulatory. Her CT scan did show evidence of tumor progression after receiving second line chemotherapy. There is only a limited amount of additional chemotherapeutic choices and I have relayed this to her sister. I have discussed the possibility of palliative care only. We will discuss this further at the office next week. Diagnosis - Discharge Diagnosis (1) Metastatic colon cancer in female Status: Acute Discharge Plan - Discharge Medications Continue Cetirizine Tab [ZyrTEC Tab] 10 mg PO QAM Fluticasone 50 Mcg Nasal [place] [Flonase Nasal [place]] 1 spray BOTH NARES QAM PRN PRN Reason: ALLERGIES Brimonidine 0.1% Oph Soln [Alphagan P 0.1% Oph Soln] 1 drop BOTH EYES TID Diphenoxylate HCl/Atropine [Diphenoxylate/Atropine 2.5-0.025 mg Tab] 1 each PO Q4H PRN PRN Reason: Diarrhea Doxycycline Monohydrate 100 mg PO [id number] Potassium Chloride [Klor-Con 8] 16 meq PO QAM Nebivolol [Bystolic] 10 mg PO QAM Megestrol Tab [Megace Tab] 40 mg PO BID Amlodipine Besylate 10 mg PO QAM Magnesium Oxide 400 mg PO QAM Cetirizine HCl [Cetirizine Tab] 10 mg PO QAM Ofloxacin 0.3% Oph Soln [Ocuflox 0.3% Oph Soln] 1 drop LEFT EYE BID Discontinued Ferrous Sulfate 325 mg PO QAM Atorvastatin [Lipitor] 20 mg PO BEDTIME Cyproheptadine Tab [Periactin Tab] 4 mg PO DAILY - Follow Up or Referral - Forms/Instructions Exam - Constitutional Vitals: Period Temp Pulse Resp BP Sys/Echeverria Pulse Ox Last 24 Hr 97.6 F-99.3 F 97-120 18-22 119-148/63-81 96-100 Discharge Results Procedures and tests throughout hospitalization: Pending Orders 05/07/17 04:00 Comp Blood Count Auto Diff IN AM Comprehensive Metabolic Panel IN AM Magnesium IN AM 05/08/17 04:00 Comp Blood Count Auto Diff IN AM Comprehensive Metabolic Panel IN AM Magnesium IN AM Labs on day of discharge: Labs from last 24 hours 05/06/17 05/06/17 05/06/17 07:21 05:56 04:00 WBC RBC Hgb Hct MCV MCH MCHC RDW Plt Count MPV Neut % (Auto) Lymph % (Auto) [place] % (Auto) Eos % (Auto) Baso % (Auto) Neut # (Auto) Lymph # (Auto) [place] # (Auto) Eos # (Auto) Baso # (Auto) Total Counted Immature Gran % Nucleated RBC % Immature Gran # Segmented Neutrophils Band Neutrophils Lymphocytes Monocytes Eosinophils Metamyelocytes Nucleated RBCs Nucleated RBCs # Platelet Estimate Immature Plt Fraction Hypochromasia Microcytosis Sodium 142 Potassium 3.6 Chloride 114 H Carbon Dioxide 21 Anion Gap 10.6 BUN 19 H Creatinine 1.50 H GFR Calculation 51 BUN/Creatinine Ratio 12.00 Glucose 85 POC Glucose 110 H 105 Calculated Osmolality 283.1 Calcium 7.7 L Phosphorus Magnesium Total Bilirubin 0.70 AST 55 H ALT 13 Alkaline Phosphatase 259 H Total Protein 5.5 L Albumin 2.1 L Globulin 3.4 Albumin/Globulin Ratio 0.6 L Triglycerides 05/06/17 05/06/17 05/06/17 04:00 04:00 00:58 WBC 21.6 H RBC 3.09 L Hgb 9.2 L Hct 28.0 L MCV 90.6 MCH 30 MCHC 32.9 RDW 17.4 H Plt Count 159 MPV 9.9 Neut % (Auto) 71.5 Lymph % (Auto) 9.3 L [place] % (Auto) 12.6 Eos % (Auto) 1.9 Baso % (Auto) 0.3 Neut # (Auto) 15.4 H Lymph # (Auto) 2.0 [place] # (Auto) 2.7 H Eos # (Auto) 0.4 Baso # (Auto) 0.1 Total Counted 100 Immature Gran % 4.4 Nucleated RBC % 0.1 Immature Gran # 0.95 Segmented Neutrophils 72 Band Neutrophils 2 Lymphocytes 12 L Monocytes 11 Eosinophils 1 Metamyelocytes 2 Nucleated RBCs 1 Nucleated RBCs # 0.02 Platelet Estimate Adequate Immature Plt Fraction 0.0 Hypochromasia 1+ Microcytosis 1+ Sodium 143 Potassium 3.6 Chloride 114 H Carbon Dioxide 21 Anion Gap 11.6 BUN 19 H Creatinine 1.50 H GFR Calculation 51 BUN/Creatinine Ratio 12.00 Glucose 83 POC Glucose 95 Calculated Osmolality 285.0 Calcium 7.7 L Phosphorus 3.0 Magnesium 1.7 L Total Bilirubin AST ALT Alkaline Phosphatase Total Protein Albumin Globulin Albumin/Globulin Ratio Triglycerides 100 05/05/17 05/05/17 17:55 11:41 WBC RBC Hgb Hct MCV MCH MCHC RDW Plt Count MPV Neut % (Auto) Lymph % (Auto) [place] % (Auto) Eos % (Auto) Baso % (Auto) Neut # (Auto) Lymph # (Auto) [place] # (Auto) Eos # (Auto) Baso # (Auto) Total Counted Immature Gran % Nucleated RBC % Immature Gran # Segmented Neutrophils Band Neutrophils Lymphocytes Monocytes Eosinophils Metamyelocytes Nucleated RBCs Nucleated RBCs # Platelet Estimate Immature Plt Fraction Hypochromasia Microcytosis Sodium Potassium Chloride Carbon Dioxide Anion Gap BUN Creatinine GFR Calculation BUN/Creatinine Ratio Glucose POC Glucose 131 H 167 H Calculated Osmolality Calcium Phosphorus Magnesium Total Bilirubin AST ALT Alkaline Phosphatase Total Protein Albumin Globulin Albumin/Globulin Ratio Triglycerides DS: Provider Date of admission: 04/25/17 16:48 Primary care physician: Tito Love MD Attending physician on admission: Ernesto Flores MD Consults: 04/25/17 19:17 Consult to Dietitian [CONS] Routine Reason for Dietitian: Diet Recommendations 04/29/17 08:28 Consult to Dietitian [CONS] Routine Reason for Dietitian: TPN/PPN-Initiate/Manage 04/30/17 11:10 Consult to Physician [CONS] Routine Comment: Bowel Obstruction Consulting Provider: Harpreet Millan Consulting Provider Notified: Yes When should Consulting Provider be notified: Now Consult to Specialist Group: Surgery When should Consulting Provider be notified: Now Person Notified: Unique Date Notified: 04/30/17 Time Notified: 11:55 05/04/17 08:07 Consult to Occupational Therapy [CONS] Routine Reason for Occupational Therapy: Evaluate and Treat Consult to Physical Therapy [CONS] Routine Reason for Physical Therapy: Evaluate and Treat Discharging clinician: Ernesto Flores MD
[2017-05-06] MEDS ORDERED: HEPARIN LOCK FLUSH 500 UNIT/5 ML SYRINGE IV PRN (09:52)
== END 2017-05-06 10:40 | disposition home health service (06) | DRG 689 ==
LOC: N.ED 09:27 → N.EDINP 16:48 → N.4E 17:40
PROVIDERS: ADMIT Specialist; ATTEND Specialist

== ENCOUNTER 2017-07-28 04:23 | Inpatient (IN) ==
[2017-07-28 05:07] LABS: Basophils # 0.1 10*3/uL (0.0-0.2); Basophils % 0.1 % (0.0-0.8); Hematocrit 25.3 VOL% (35.7-47.0); Hemoglobin 7.4 GM/DL (12.0-16.0); Immature Granulocytes % 14.5 %; Immature Granulocytes Absolute 8.48 #; Lymphocytes # 1.6 10*3/uL (1.4-4.0); Lymphocytes % 2.8 % (21.3-54.2); Mean Corpuscular HGB Conc 29.2 GM/DL (32-36); Mean Corpuscular Hemoglobin 32 PG (27-34); Mean Platelet Volume 10.2 FL (9.6-12.0); Monocytes % 5.1 % (1.7-12.7); NRBC # 0.35 10*3/uL; Neutrophils # 45.3 10*3/uL (1.4-7.4); Neutrophils % 77.5 % (38.7-73.9); Platelet Count 267 T/CUMM (130-400); Red Cell Distribution Width 19.6 % (9.3-17.3)
[2017-07-28 05:12] LABS: INR 1.4; PT Patient Result 14.3 SECS
[2017-07-28 05:18] LABS: Amorphous Crystals,Urine Few /HPF (Few); Apearance,Urine Slightly Hazy (Clear); Bacteria,Urine Occasional /HPF (Few); Barbiturates Screen,Urine Negative (Negative); Benzodiazepines Screen,Urine Negative (Negative); Bilirubin,Urine Negative (Negative); Blood, Urine Negative (Negative); Cannabinoid Screen,Urine Negative (Negative); Glucose,Urine (UA) Negative (Negative); Ketones,Urine Negative (Negative); Mucus,Urine Occasional /LPF (Occasional); Nitrite,Urine Negative (Negative); Opiate Screen,Urine Positive (Negative); Phencyclidine Screen,Urine Negative (Negative); Protein,Urine 100 MG/DL; Squamous Epithelial Cell,Urine Occasional /HPF (0-10); Urine Color Amber (Yellow); Urine Specific Gravity 1.011 (1.001-1.035); Urine Urobilinogen < 2.0 EU/DL (0.2-1.0)
[2017-07-28 05:22] LABS: Alanine Aminotransferase 27 U/L (13-56); Albumin 2.2 G/DL (3.4-5.0); Alkaline Phosphatase 534 U/L (45-117); Aspartate Amino Transferase 108 U/L (0-37); Blood Urea Nitrogen 25 MG/DL (7-18); Calcium 8.2 MG/DL (8.5-10.1); Glucose 141 MG/DL (74-106); Magnesium 2.1 MG/DL (1.8-2.4); Osmolality,Calculated 286.3 MOS/KG (273-304); Potassium 5.8 MMOL/L (3.5-5.1); Sodium 141 MMOL/L (136-145); Total Protein 8.3 G/DL (6.4-8.3); Troponin I Only < 0.015 NG/ML (0.00-0.045)
[2017-07-28 05:23] LABS: White Blood Count 58.5 T/CUMM (4-12)
[2017-07-28] MEDS ORDERED: CEFEPIME 2,000 MG in SODIUM CHLORIDE 0.9% 100 ML IV STA (05:26)
[2017-07-28] MEDS ORDERED: VANCOMYCIN INJ 1,000 MG in SODIUM CHLORIDE 0.9% 250 ML IV STA (05:26)
[2017-07-28] MEDS ORDERED: SODIUM CHLORIDE 0.9% 2,850 ML IV ONE (05:27)
[2017-07-28] MEDS ORDERED: metroNIDAZOLE INJ 500 MG in PREMIX 1 EACH IV STA (05:27)
[2017-07-28 05:31] LABS: Lactic Acid 2.2 MMOL/L (0.4-2.0)
[2017-07-28 05:53] LABS: Band Neutrophils 1 % (0-10); Lymphocytes 4 % (20-55); Metamyelocytes 3 %; Myelocytes 2 %; Segmented Neutrophils 88 % (50-85); Total Cells Counted 100
[2017-07-28 05:54] LABS: Hypochromasia 1+; Macrocytosis 1+; Platelet Estimate Normal
[2017-07-28] MEDS ORDERED: VANCOMYCIN 1,000 MG VIAL ONE (06:04)
[2017-07-28] MEDS ORDERED: metroNIDAZOLE 500 MG/100 ML PREMIX IV ONE (06:05)
[2017-07-28] MEDS ORDERED: LORazepam 2 MG/1 ML VIAL IV STA (06:27)
[2017-07-28] MEDS ORDERED: LORazepam 2 MG/1 ML VIAL ONE (06:28)
[2017-07-28] MEDS ORDERED: MORPHINE 2 MG/1 ML SYRINGE IV PRN (06:32)
[2017-07-28 06:55] LABS: VBG HCO3 13.4 MEQ/L (24-28); VBG Oxygen Saturation 99.4 %; VBG PCO2 94.4 MMHG (41-51); VBG PH 6.92
[2017-07-28] MEDS: SODIUM CHLORIDE 0.9% 1,000 ML IV SCH ×3 (08:55→23:02)
[2017-07-28 10:32] LABS: Lactic Acid 3.6 MMOL/L (0.4-2.0)
[2017-07-28 14:38] LABS: Lactic Acid 3.1 MMOL/L (0.4-2.0)
[2017-07-29 00:42] VITALS: BP 69/40
== END 2017-07-29 05:14 | disposition expired | DRG 951 ==
LOC: EDUNIT# → EDBD → N.ED 04:23 → N.EDINP 06:29 → N.3E 10:36